=== PATIENT | male | born 1985 | race Caucasian/White ===

== ENCOUNTER 2019-12-26 10:59 | Emergency (ER) | payer BC ==
[~2019-12-26] VITALS: Ht 175.3 cm; Wt 80.9 kg
[2019-12-26 11:36] VITALS: BP 120/83
== END 2019-12-26 11:45 | disposition home or self-care (01) ==
LOC: ER 10:59
DX: J02.9 Acute pharyngitis, unspecified (principal); K21.9 Gastro-esophageal reflux disease without esophagitis; Z91.040 Latex allergy status; Z79.899 Other long term (current) drug therapy; Z20.828 Contact with and (suspected) exposure to other viral communicable diseases
CPT/HCPCS: 36415; 87635; 99283